=== PATIENT | female | born 1990 | race Caucasian/White ===

== ENCOUNTER 2019-08-14 13:52 | Emergency (ER) | payer MEDICAID ==
[~2019-08-14] VITALS: Ht 167.6 cm; Wt 119.3 kg
[2019-08-14 14:03] VITALS: Ht 167.6 cm; Wt 119.3 kg
[2019-08-14 18:27] VITALS: BP 122/72
== END 2019-08-14 18:27 | disposition home or self-care (01) ==
LOC: ED 13:52
DX: N10 Acute pyelonephritis (principal); Z98.890 Other specified postprocedural states
CPT/HCPCS: J0696; J1885; J7030

== ENCOUNTER 2020-03-27 20:01 | Emergency (ER) | payer MEDICAID ==
[~2020-03-27] VITALS: Ht 170.2 cm; Wt 125.2 kg
[2020-03-27 20:09] VITALS: BP 122/73; Ht 170.2 cm; Wt 125.2 kg
== END 2020-03-27 20:57 | disposition home or self-care (01) ==
LOC: ED 20:01
DX: S81.001D Unspecified open wound, right knee, subsequent encounter (principal); W45.8XXD Other foreign body or object entering through skin, subsequent encounter
CPT/HCPCS: 90715